=== PATIENT | male | born 1990 | race Caucasian/White ===

== ENCOUNTER 2017-12-19 14:20 | Emergency (ER) | payer OTHER ==
[~2017-12-19] VITALS: Ht 175.3 cm; Wt 87.5 kg
[~2017-12-19 14:20] MED LIST: INDOCIN50 MG PO; NOHOMEMEDS; VALIUM5 MG PO
[2017-12-19 16:45] LABS: HEMOGLOBIN 16.7 G/DL (12.5-16.6); MCH 31.6 PG (29.0-34.0); MCHC 35.5 G/DL (30.0-36.0); PLATELET COUNT 204 K/uL (156-360); RBC DIS.WIDTH-CV 12.2 % (11.8-14.6); RBC DIS.WIDTH-SD 39.9 % (39-53); RED BLOOD COUNT 5.28 M/uL (4.00-5.50); WHITE BLOOD COUNT 6.2 K/uL (4.1-10.2)
[2017-12-19 16:48] LABS: APPEARANCE CLEAR ((CLEAR)); BILIRUBIN NEGATIVE; BLOOD NEGATIVE; COLOR STRAW ((YELLOW)); GLUCOSE (STRIP) NEGATIVE; KETONES NEGATIVE; LEUKOCYTES NEGATIVE; NITRITE NEGATIVE; PROTEIN (STRIP) NEGATIVE; SPECIFIC GRAVITY 1.015 (1.000-1.030); UCUL ADDED? NO; UROBILINOGEN 0.2 MG/DL (0.2-1.0)
[2017-12-19 16:57] LABS: ALBUMIN 4.2 g/dL (3.2-4.8); CHLORIDE 105 mEq/L (99-109); POTASSIUM 4.2 mEq/L (3.7-5.4); SODIUM 140 mEq/L (136-147)
[2017-12-19 16:59] LABS: GLUCOSE 88 mg/dL (70-99); TOTAL PROTEIN 6.6 g/dL (6.4-8.3)
[2017-12-19 17:01] LABS: TOTAL BILIRUBIN 0.7 mg/dL (0.0-1.0)
[2017-12-19 17:03] LABS: ALKALINE PHOSPHATASE 81 IU/L (3-129); CREATININE 0.7 mg/dL (0.6-1.3); GFR ESTIMATE (CALCULATED) > 59 mL/min/ (58.99-99999)
[2017-12-19 17:04] LABS: UREA NITROGEN (BUN) 15 mg/dL (9-23)
[2017-12-19 17:05] LABS: AST (GOT) 18 IU/L (2-34)
[2017-12-19 17:06] LABS: ALT (GPT) 21 IU/L (3-49)
[2017-12-19] MEDS ORDERED: COLACE100 MG PO (17:38)
[2017-12-19 18:01] VITALS: BP 131/74
== END 2017-12-19 17:48 | disposition home or self-care (01) ==
LOC: EME 14:20
PROVIDERS: Physician Assistant Medical
DX: R10.9 Unspecified abdominal pain (principal); K59.00 Constipation, unspecified; K76.9 Liver disease, unspecified; F41.9 Anxiety disorder, unspecified; Z63.4 Disappearance and death of family member; Z84.1 Family history of disorders of kidney and ureter; Z88.0 Allergy status to penicillin
CPT/HCPCS: 74176; 80053; 81003; 85027; 99281; 99285